=== PATIENT | female | born 1975 | race Caucasian/White ===

== ENCOUNTER 2018-01-20 10:10 | Inpatient (IN) | payer OTHER ==
[2018-01-20] MEDS ORDERED: ACETAMINOPHEN 500 MG TAB PO ONE (10:25)
[2018-01-20] MEDS ORDERED: ceFAZolin 2 GM/DEXTROSE 100 ML IV ONE (10:25)
[2018-01-20] MEDS ORDERED: GABAPENTIN 300 MG CAP PO ONE (10:25)
[2018-01-20] MEDS ORDERED: LR 1,000 ML IV ONE (10:26)
[2018-01-20] MEDS ORDERED: LIDOCAINE 1% 2 ML INJ ID PRN (10:26)
[2018-01-20] MEDS ORDERED: fentaNYL 100 MCG/2 ML INJ ONE ×3 (10:49→16:44)
[2018-01-20] MEDS ORDERED: REMIFENTANIL HCL 1 MG VIAL ONE (10:49)
[2018-01-20] MEDS ORDERED: PROPOFOL/EMULSION 500 MG/50 ML BOTTLE IV ONE (10:49)
[2018-01-20] MEDS ORDERED: BUPIVACAINE 0.25% 30 ML SDV ONE (10:50)
[2018-01-20] MEDS ORDERED: CHLORHEXIDINE GLUC HIBICLENS 118 ML BTL TP ONE (10:50)
[2018-01-20] MEDS ORDERED: ROCURONIUM 50 MG/5 ML VIAL ONE (10:50)
[2018-01-20] MEDS ORDERED: BACITRACIN 50,000 UNITS/10 ML SYR IRR ONE (10:51)
[2018-01-20] MEDS ORDERED: THROMBIN (BOVINE) 5,000 UNIT VIAL TP ONE (10:51)
[2018-01-20] MEDS ORDERED: EPINEPHrine 1 MG/ML INJ ONE (10:51)
[2018-01-20] MEDS ORDERED: LIDOCAINE 2% 2 ML INJ ONE ×2 (11:00)
--- NOTE | 2018-01-20 12:09 | PDHPUP ---
History & Physical Update H&P update statement: This history and physical update is based on an assessment of the patient which was completed after admission or registration (within 24 hours), but prior to the surgery/procedure. H&P update: H&P reviewed & patient examined, no change in patient's condition since H&P completed
[2018-01-20] MEDS ORDERED: MIDAZOLAM 2 MG/2 ML VIAL ONE (12:32)
[2018-01-20] MEDS ORDERED: BUPIVACAINE 0.5% 30 ML SDV ONE (12:37)
[2018-01-20] MEDS ORDERED: ePHEDrine SULFATE 25 MG/5 ML SYR ONE (13:18)
--- NOTE | 2018-01-20 13:20 | POSTANESTH ---
Post Anesthetic Evaluation Cardiovascular Status: Normal, Stable Respiratory Status: Normal, Stable Level of Consciousness/Mental Status: Can Participate in Eval, Alert and Oriented Pain Control: Adequate, Prn Tx Ordered Nausea/Vomiting Control: Adequate, Prn Tx Ordered Complications Possibly Related to Anesthesia: None Noted
--- NOTE | 2018-01-20 13:20 | PDANEPAE ---
ANE History of Present Illness C5-7 ACDF ANE Past Medical History - Cardiovascular History Hx Hypertension: No Hx Arrhythmias: No Hx Chest Pain: No Hx Coronary Artery / Peripheral Vascular Disease: No Hx CHF / Valvular Disease: No Hx Palpitations: Yes Cardiovascular History Comment: r/t thyroid - Pulmonary History Hx COPD: No Hx Asthma/Reactive Airway Disease: No Hx Recent Upper Respiratory Infection: No Hx Oxygen in Use at Home: No Hx Sleep Apnea: No Sleep Apnea Screening Result - Last Documented: Negative - Neurologic History Hx Cerebrovascular Accident: No Hx Seizures: No Hx Dementia: No - Endocrine History Hx Diabetes: No Endocrine History Comment: HYPOTHYROID. 12/27/17 ADDED 2ND THYROID MEDICATION - Renal History Hx Renal Disorders: No - Liver History Hx Hepatic Disorders: No - Neurological & Psychiatric Hx Hx Neurological and Psychiatric Disorders: Yes Neurological / Psychiatric History Comment: raynards of nipple while breast feeding. depression,anxiety - Cancer History Hx Cancer: No - Congenital Disorder History Hx Congenital Disorders: No - GI History Hx Gastrointestinal Disorders: No - Other Health History Other Health History: HXendometriosis. ECZEMA ELBOWS,HANDS. DDD/STENOSIS. PREVIOUD INJURIES SUCH WHILASH,HARD FALLS - Chronic Pain History Chronic Pain: Yes (NECK PAIN,BURNING ARMS/HANDS AND LT LEG,HEADACHES) - Surgical History Prior Surgeries: pelvic lap endometriosis X2 ANE Review of Systems Review of Systems: - Exercise capacity METS (RN): 4 METS ANE Patient History - Allergies Allergies/Adverse Reactions: nitrofurantoin [From Macrobid] Allergy (Verified 08/15/17 16:35) Hives Sulfa (Sulfonamide Antibiotics) Allergy (Verified 08/15/17 16:35) Rash - Home Medications Home Medications: Fluticasone Nasal [Flonase Nasal [place] (RX)] 1 sprays NASAL DAILY PRN 08/09/17 [ Last Taken 01/20/18 10:00] Herbals/Supplements -Info Only 1 ea PO DAILY 08/09/17 [Last Taken Unknown] Ibuprofen [Motrin (*)] 200 mg PO DAILY PRN 08/09/17 [Last Taken 01/08/18] Levothyroxine [Synthroid 112 mcg (*)] 112 mcg PO DAILY06 08/09/17 [Last Taken 06:45] Multivitamins [Multivitamin (*)] 1 each PO DAILY 08/09/17 [Last Taken 01/08/18] Ibuprofen [Motrin (*)] 200 mg PO DAILY PRN 12/20/17 [Last Taken 01/08/18] Ibuprofen/Diphenhydramine Cit [Advil Pm Caplet] 1 each PO HS PRN 12/20/17 [Last Taken 01/08/18] Melatonin [Melatonin 3 MG (*)] 3 mg PO HS PRN 12/20/17 [Last Taken 01/06/18] Pearblossom-3 Fatty Acids [Fish Oil 1000 mg (*)] 1,000 mg PO DAILY 12/20/17 [Last Taken 01/08/18] guaiFENesin [Mucinex 600 MG (*)] 600 mg PO BID 12/20/17 [Last Taken 01/06/18] traMADol [Ultram 50 mg (*)] 25 mg PO HS PRN 12/20/17 [Last Taken 01/08/18] Liothyronine Sodium [Cytomel 5 mcg (*)] 5 mcg PO BID@06,12 12/27/17 [Last Taken 01/20/18 06:45] - NPO status NPO Since - Liquids (Date): 01/19/18 NPO Since - Liquids (Time): 23:00 NPO Since - Solids (Date): 01/19/18 NPO Since - Solids (Time): 17:30 - Smoking Hx Smoking Status: Never smoked - Family Anes Hx Family Hx Anesthesia Complications: none ANE Labs/Vital Signs - Vital Signs Blood Pressure: 98/64 Heart Rate: 56 Respiratory Rate: 16 O2 Sat (%): 98 Height: 172.72 cm Weight: 60.328 kg ANE Physical Exam - Airway Neck exam: FROM Mallampati Score: Class 1 Mouth exam: normal dental/mouth exam - Pulmonary Pulmonary: no respiratory distress - Cardiovascular Cardiovascular: regular rate and rhythym - ASA Status ASA Status: II ANE Anesthesia Plan Anesthesia Plan: general endotracheal anesthesia Urgent/Emergent Case: Francis baird completed preop but documented later for safe timely pt care
[2018-01-20] MEDS ORDERED: MIDAZOLAM 2 MG/2 ML VIAL IVP ONE (13:21)
[2018-01-20] MEDS ORDERED: LACTULOSE 20 GM/30 ML UDCUP PO PRN (13:46)
[2018-01-20] MEDS ORDERED: MAGNESIUM HYDROXIDE 30 ML UDCUP PO PRN (13:46)
[2018-01-20] MEDS ORDERED: POLYETHYLENE GLYCOL 3350 17 GM PKT PO PRN (13:46)
[2018-01-20] MEDS ORDERED: diphenhydrAMINE 25 MG CAP PO PRN (13:46)
[2018-01-20] MEDS ORDERED: BISACODYL 10 MG SUPP PR PRN (13:46)
[2018-01-20] MEDS ORDERED: ONDANSETRON 4 MG/2 ML VIAL IVP PRN ×2 (13:46→15:14)
[2018-01-20] MEDS ORDERED: MELATONIN 3 MG TAB PO PRN (13:49)
[2018-01-20] MEDS ORDERED: FLUTICASONE NASAL 120 SPRAYS/16 GM MDI NS PRN (13:49)
[2018-01-20] MEDS ORDERED: ONDANSETRON 4 MG/2 ML VIAL ONE (15:06)
[2018-01-20] MEDS ORDERED: ACETAMINOPHEN 500 MG TAB PO PRN (15:14)
[2018-01-20] MEDS ORDERED: LABETALOL HCL 5 MG/ML 20 ML MDV IVP PRN (15:14)
[2018-01-20] MEDS ORDERED: oxyCODONE IR 5 MG TAB PO PRN (15:14)
[2018-01-20] MEDS ORDERED: NALOXONE HCL 0.4 MG/ML INJ IVP PRN (15:14)
[2018-01-20] MEDS ORDERED: HYDROCODONE/APAP 5/325 TAB PO PRN (15:14)
[2018-01-20] MEDS ORDERED: PROMETHAZINE HCL 25 MG/ML INJ IVP PRN (15:14)
[2018-01-20] MEDS ORDERED: LR 500 ML IV PRN (15:14)
[2018-01-20] MEDS ORDERED: ALBUTEROL 3 ML DEYVIAL IH PRN (15:14)
[2018-01-20] MEDS ORDERED: HYDROmorphONE/DILAUDID 2 MG/ML INJ ONE (15:59)
[2018-01-20] MEDS: HYDROmorphONE/DILAUDID 2 MG/ML INJ IVP PRN ×5 (16:01→16:43)
[2018-01-20] MEDS ORDERED: DIAZEPAM 5 MG/ML 1 ML SYR ONE (16:06)
[2018-01-20] MEDS: DIAZEPAM 5 MG/ML 1 ML SYR IVP PRN ×2 (16:07→16:19)
[2018-01-20] MEDS: fentaNYL 100 MCG/2 ML INJ IVP PRN ×2 (16:46→16:58)
[2018-01-20] MEDS: ACETAMINOPHEN 500 MG TAB PO SCH ×2 (17:56→21:07)
[2018-01-20] MEDS: oxyCODONE IR 5 MG TAB PO PRN ×3 (17:56→23:36)
[2018-01-20] MEDS: METHOCARBAMOL 750 MG TAB PO PRN ×2 (17:56→23:31)
--- NOTE | 2018-01-20 18:32 | GOP ---
DATE OF OPERATION: 01/20/2018 SURGEON: Fox Stapleton MD NEUROSURGEON: Gio Stapleton MD PLANT CARE WORKER: Brianna Mayberry NP. PREOPERATIVE DIAGNOSIS: Cervical spondylosis, cervical disk herniation, cervical radiculopathy. POSTOPERATIVE DIAGNOSIS: Cervical spondylosis, cervical disk herniation, cervical radiculopathy. PROCEDURE PERFORMED: Anterior cervical diskectomy, fusion, and decompression same levels C5-6, C6-7, placement of biomechanical intervertebral device C5-6, C6-7, anterior cervical plate C5, C6, C7, jose e incision bone graft harvest, microscope. FINDINGS: Consistent with MRI. SPECIMENS: None. ESTIMATED BLOOD LOSS: 50 cc. INDICATIONS: The patient is a 42-year-old with cervicalgia and radiating pain into the left arm more so than the right, whose MRI demonstrated 4 level disease at C3-4, C4-5, C5-6, C6-7. There is evide nce of nerve compression on the left side at C5-6, C6-7, and I suggested a 2-level fusion. We discus sed disk arthroplasty and we obtained opinion from other surgeons and none of the surgeons in my grou p felt she would be a good candidate for arthroplasty given the multilevel nature of her disease as w ell as the straightening of her cervical lordosis. The risk of adjacent segment disease was discusse d. She knew that almost certainly she would require surgery at C3-4, C4-5 in the future. She knew t here was a risk of esophageal injury, carotid injury, recurrent laryngeal nerve injury, continued sym ptoms, pseudoarthrosis, and the possible need for future spine surgery. She knew there was risk of m ajor vascular injury as well as the risk of dysphagia. She wanted to proceed despite these risks. DESCRIPTION OF PROCEDURE: The patient was taken to the operating room, placed in the supine position . General anesthesia was begun. A midline shoulder roll was placed. Her head was put on a horsesho e head rigger. Care was taken to pad all points of contact. Her neck was sterilely prepped and drap ed by the surgeon. We planned an incision in the dominant neck crease on the right-hand side. She w as sterilely prepped and draped. Local anesthesia was infiltrated into the skin. We made a linear i ncision in the dominant neck crease on the right-hand side with a scalpel blade. The subcutaneous ti ssue was dissected using Bovie cautery through the platysma. We then used a combination of sharp and blunt dissection, working our way medial to the sternocleidomastoid and lateral to the strap muscles down to the prevertebral space. The dissection was extremely straightforward. The carotid sheath a nd its contents were kept lateral. We placed a needle in the C5-6 disk, shot a localizing x-ray, reta samia self-retaining retractors, dissected the longus colli muscles off the spine at C5-6, C6-7. We re moved the ventral osteophytes at C5-6, C6-7, placed distraction pins at C5-6. A localizing x-ray was taken. The operating microscope was introduced. We removed the C5-6 disk completely. We drilled an d harvested subchondral bone for autologous grafting purposes. We chose a 6 mm lordotic implant for the C5-6 level. We then packed it with autologous harvested bone dust that we had harvested from the vertebral endplate. We had a large amount of bone dust that completely filled the implant. We then opened the posterior longitudinal ligament, decompressed the thecal sac and the neural foramen on ea ch side. The left side was indeed more stenotic. There was a soft disk fragment in the neural krysten en as well and this was removed. We got excellent decompression of the C6 nerve root. We then took the implant inserted it at C5-6, shot an x-ray confirming its position in the disk space. We moved o ur distraction pin from C5 down to C7, distracted at that level and did likewise, removed the disk, r emoved the cartilaginous endplates. We drilled and harvested subchondral bone. We chose a 6 mm impl ant. We packed it with autologously harvested bone. We then opened the PLL and decompressed the the nilda sac and the neural foramen bilaterally. The left-sided foramen was much more stenotic than the r ight. We got a great decompression of both neural foramen. We then inserted the implant at C6-7, re moved our distraction pin and placed Gelfoam bullets in the holes that remained. We chose a [address] pl ate and increased the lordosis on the plate by bending it. We then placed it into the incision and p laced a single screw in each of the vertebral bodies and shot an x-ray. They were all in perfect pos ition. We placed the remaining 3 screws for a total of 6 screws. We locked them according to company specification. We then shot a final x-ray. The hardware was in great position. We then achieved m eticulous hemostasis. We placed 6 cc of the dysphagia study drug in the prevertebral space and then closed the platysma with interrupted Vicryl sutures. The skin was reapproximated with interrupted Vi cryl sutures and Steri-Strips were applied to the skin. The patient was reversed from anesthesia, ex tubated, and transferred to the recovery room in stable condition. There were no complications. COMPLICATIONS: None. INSTRUMENTATION USED: Medtronic Zevo plate with Medtronic anatomic PTC cage, 6 mm cage at each level . /[id number]/MODL
--- NOTE | 2018-01-20 20:03 | POSTOPPROG ---
Post Op Note Date of Operation: 01/20/18 Surgeon: German Stapleton Social Service Agency Director: Morales Mayberry NP Anesthesiologist: Lazaro Anesthesia: GET(General Endotracheal) Pre-op Diagnosis: Cervical stenosis Procedure: ACDF C5-6, C6-7 Inf/Abcess present in the surg proc area at time of surgery?: No Depth: Deep Incisional (Fascial) EBL: Minimal Total fluids administered: see anesthesia Complications: none Date of Surgery: 01/20/18 Post Op Day: 0 Assessment/Plan: Late entry: Patient was seen an examined in PACU at [address] Stapleton Assessment: 42 yr old F s/p ACDF C5-6, C6-7 for left>right arm symptoms Plan: -Pain management -Patient has collar, wear at all times -Post op xrays in am -PT/OT/ST eval -Call neurosurgery with questions/concerns Subjective: Trap pain, waking up in pacu Objective: Waking up in PACU, alert MACEDO X4 5/5 BUE, BLE Collar in place Steri-Strips in place, CDI Appropriate Neuro Check Frequency Ordered: Yes
[2018-01-20] MEDS: ONDANSETRON DISINTEGRATING 4 MG TAB PO PRN (20:04)
[2018-01-20] MEDS: SENNOSIDES/DOCUSATE SODIUM TAB PO SCH (21:07)
[2018-01-20] MEDS: guaiFENesin 600 MG TAB.ER PO SCH (21:08)
[2018-01-20] MEDS: FAMOTIDINE 20 MG TAB PO SCH (21:08)
[2018-01-20] MEDS: ceFAZolin 2 GM/DEXTROSE 100 ML IV SCH (21:09)
[2018-01-21] MEDS ORDERED: LEVOTHYROXINE 112 MCG TAB PO SCH (06:00)
[2018-01-21] MEDS: ceFAZolin 2 GM/DEXTROSE 100 ML IV SCH (06:01)
[2018-01-21] MEDS: LIOTHYRONINE SODIUM 5 MCG TAB PO SCH ×2 (06:02→11:17)
[2018-01-21] MEDS: ACETAMINOPHEN 500 MG TAB PO SCH ×2 (06:04→13:19)
[2018-01-21] MEDS: oxyCODONE IR 5 MG TAB PO PRN ×2 (06:09→13:19)
[2018-01-21] MEDS: METHOCARBAMOL 750 MG TAB PO PRN ×2 (06:09→11:16)
--- NOTE | 2018-01-21 08:30 | NEUSURGPN ---
Date of Surgery: 01/20/18 Post Op Day: 1 Assessment/Plan: Assessment: 42 yr old F s/p ACDF C5-6, C6-7 for left>right arm symptoms POD#1 Plan: -Pain management, well controlled with current medication schedule -Patient has collar, wear at all times. Patient concerned about fit, I ensured her it is fitting well. -Post op xrays today -PT/OT/ST eval, patient has questions for therapies regarding ADLs with collar -Ok to discharge home later today after xrays and seen by therapies -Patient was seen by Dr Stapleton as well -Call neurosurgery with questions/concerns Subjective: Intermittent left finger numbness, bilateral heel discomfort Objective: AXO x4 5/5 BUE, BLE 5- generalized in LUE Steri strips in place CDI Collar in place Neuro Check Frequency: per routine Urinary Catheter in Place: No - Physician Discussed Patient with : Pieter Patient Seen by : Pieter Neurosurgery Physical Exam - Vitals, I&O, Labs I and O 01/20/18 01/21/18 01/22/18 05:59 05:59 05:59 Intake Total 1520 Output Total 2200 Balance -680 Weight 60.328 kg Intake: Oral (ml) 1020 IV Intake (ml) 500 Output: Urine (ml) 2200 Toilet 2200 Other: Intake Quantity Yes Sufficient Number of Voids Toilet 1 Vital Signs Temp Pulse Resp BP Pulse Ox 36.7 C 77 16 100/58 L 97 01/21/18 04:00 01/21/18 04:00 01/21/18 04:00 01/21/18 04:00 01/21/18 04:00 ICD10 Worksheet Patient Problems: Problems Problem Status Onset Cervical stenosis of spine Acute - ICD10 Problem Qualifiers (1) Cervical stenosis of spine
[2018-01-21] MEDS: SENNOSIDES/DOCUSATE SODIUM TAB PO SCH (09:05)
[2018-01-21] MEDS: guaiFENesin 600 MG TAB.ER PO SCH (09:06)
[2018-01-21] MEDS: FAMOTIDINE 20 MG TAB PO SCH (09:09)
[2018-01-21] MEDS: ONDANSETRON DISINTEGRATING 4 MG TAB PO PRN ×2 (09:12→15:21)
--- NOTE | 2018-01-21 10:37 | ASMTLACE ---
GEOFF Length of stay for Answers: 2 days current admission Acuity / Level of Answers: No Care: Did the patient have an inpatient admission? Comorbidities - select Answers: Opioid dependence all that apply / Chronic pain Other Notes: Hypothyroid # of Emergency department Answers: 0 visits in the last 6 months Social determinants Answers: Mental health diagnosis (anxiety, depression, pers onality disorders, etc.) Score: 10 Date Signed: 01/21/2018 10:37 AM Electronically Signed By:Rasheeda Forrester
[2018-01-21 12:01] VITALS: BP 97/64
--- NOTE | 2018-01-21 16:01 | ASDISCHSUM ---
Discharge Information Plan Status:Home with No Needs Medically Cleared to Leave:01/21/2018 Discharge Date:01/21/2018 03:29 PM CM D/C Disposition:Home, Routine, Self-Care ADT D/C Disposition:Home, Routine, Self-Care Projected Discharge Date:01/21/2018 09:00 AM Transportation at D/C:Family Discharge Delay Reason: Follow-Up Date:01/21/2018 09:00 AM Discharge Slot:1 - 8:01 am - 12:00 noon Final Diagnosis:Cervical spinal stenosis Placement Information Patient Contact Information Contact Name:ARASH Relationship: Address:[address] [place] [address] Work Phone: City:[place] Alternate Phone: State/Zip Code:[place] [address] Email: Financial Information Financial Class:HMO and PPO Plans Primary Plan Desc:[facility] Primary Plan Number:[id number] Secondary Plan Desc: Secondary Plan Number: Assessment Information LACE LACE Length of stay for Answers: 2 days current admission Acuity / Level of Answers: No Care: Did the patient have an inpatient admission? Comorbidities - select Answers: Opioid dependence all that apply / Chronic pain Other Notes: Hypothyroid # of Emergency department Answers: 0 visits in the last 6 months Social determinants Answers: Mental health diagnosis (anxiety, depression, pers onality disorders, etc.) Score: 10 Date Signed: 01/21/2018 10:37 AM Electronically Signed By:Rasheeda Forrester Case Management Discharge Plan Note Case Management Discharge Discharge Order Complete? Answers: Yes Patient to Obtain Answers: via Family Medications Transportation Arranged Answers: Family/Friends Transport will Pick (Date 01/21/2018 09:00 AM & Time) Family Notified Answers: Yes Notes: to transport Discharge Comments Notes: Patient had a cervical fusion C 5-7. Discharged with no needs/OT and ST. She lives with her in [place]. Date Signed: 01/21/2018 03:59 PM Electronically Signed By:Albina Hutson LCSW Intervention Information
[2018-01-23] MEDS ORDERED: ENOXAPARIN 40 MG/0.4 ML SYR SC SCH (09:00)
== END 2018-01-21 15:29 | disposition home or self-care (01) | DRG 473 ==
LOC: INTOOBSV 10:15 → OBSVTOIN 10:15 → F3N 10:15
PROVIDERS: ADMIT Neurological Surgery; ATTEND Neurological Surgery
DX: M50.10 Cervical disc disorder with radiculopathy, unspecified cervical region (principal); M47.22 Other spondylosis with radiculopathy, cervical region; E03.9 Hypothyroidism, unspecified
CPT/HCPCS: 92610-GN; 97161-GP; 97165-GO; 97535-GO; C1713; G0378; J0171; J0690; J1170; J2250; J2270; J2405; J2704; J3010; J3360